=== PATIENT | female | born 1970 | race Two or more races ===

== ENCOUNTER 2016-08-28 19:18 | Emergency (ER) | payer OTHER ==
[~2016-08-28] VITALS: Ht 167.6 cm; Wt 99.3 kg
[~2016-08-28 19:18] MED LIST: AMLODIPINE BESYL5 MG ORAL; HYDROCHLOROTHIA25 MG ORAL; HYDROCODON-ACE1 EA15 ORAL; KEFLEX500 MG ORAL; LISINOPRIL40 MG ORAL; METFORMIN HCL1000 M1 ORAL; METOPROLOL SUCC50 MG ORAL; NIFEDIPINE ER30 MG ORAL
[2016-08-28 19:32] VITALS: BP 161/95
--- NOTE | 2016-08-28 19:39 | Emergency Room Report ---
History of Present Illness General Chief Complaint: Back Pain-No Injury Source: Patient Present Illness HPI Is a 46-year-old female with a history of back pain and also diabetes. She complaining of nontraumatic left-sided back pain for the last 2 weeks. Worse with movement. Worse with bending over. No fever or chills. No nausea vomiting. No urinary complaint. No incontinence of bowel or urine. Pain is 7/ 10. Has not take any medication for it. Allergies: Coded Allergies: No Known Allergies (Unverified , 08/12/14) Patient History Past Medical History: see triage record, old chart reviewed, DM Past Surgical History: other Pertinent Family History: none Social History: Denies: smoking Last Menstrual Period: July Now: No Immunizations: other Reviewed Nursing Documentation: PMH: Agreed, PSxH: Agreed Nursing Documentation-PMH Hx Hypertension: Yes Hx Diabetes: Yes Review of Systems Eye: Denies: blurred vision, eye pain ENT: Denies: ear pain, nose congestion, throat swelling Respiratory: Denies: cough, shortness of breath Cardiovascular: Denies: chest pain, palpitations Gastrointestinal: Denies: abdominal pain, diarrhea, nausea, vomiting Musculoskeletal: Reports: back pain, Denies: joint pain Skin: Denies: rash Neurological: Denies: headache, numbness Endocrine: Denies: increased thirst, increased urine Hematologic/Lymphatic: Denies: easy bruising All Other Systems: negative except mentioned in HPI Physical Exam Vital Signs Date Time Temp Pulse Resp B/P Pulse Ox O2 Delivery O2 Flow Rate FiO2 08/28/16 19:22 97.9 94 16 161/95 97 Room Air vitals with hypertension Sp02 EP Interpretation: reviewed, normal General Appearance: well appearing, no apparent distress, alert Head: normocephalic, atraumatic Eyes: bilateral eye EOMI, bilateral eye PERRL ENT: hearing grossly normal, normal pharynx Neck: full range of motion, supple, no meningismus Respiratory: chest non-tender, lungs clear, normal breath sounds Cardiovascular #1: regular rate, rhythm, no murmur Gastrointestinal: normal bowel sounds, non tender, no mass, no organomegaly, no bruit, non-distended Musculoskeletal: back normal, gait/station normal, normal range of motion, other - Tenderness over the paraspinous muscle of the left lower lumbar area. No midline tenderness. No percussive tenderness. Full range of motion. Psychiatric: mood/affect normal Skin: warm/dry Medical Decision Making Diagnostic Impression: Primary Impression: Back pain Qualified Codes: M54.5 - Low back pain Additional Impressions: UTI (lower urinary tract infection) Hypertension Qualified Codes: I10 - Essential (primary) hypertension Proteinuria Qualified Codes: R80.9 - Proteinuria, unspecified ER Course Patient presents with back pain. Most likely muscle skeletal in nature. She may have urinary tract infection. She grew out Escherichia coli in the past. Will discharge on antibiotics also. No evidence of pyelonephritis, cauda equina syndrome, spinal after abscess or ectopic. Last Vital Signs Date Time Temp Pulse Resp B/P Pulse Ox O2 Delivery O2 Flow Rate FiO2 08/28/16 19:22 97.9 94 16 161/95 97 Room Air Status: improved Disposition: HOME, SELF-CARE Condition: Stable Scripts Levofloxacin* (LEVAQUIN*) 500 Mg Tablet 500 MG ORAL DAILY, #7 TAB Prov: PERLA HILLMAN M.D. 08/28/16 Ibuprofen* (MOTRIN*) 600 Mg Tablet 600 MG ORAL THREE TIMES A DAY, #30 TAB 0 Refills Prov: PERLA HILLMAN M.D. 08/28/16 Patient Instructions: Back Pain, Adult Additional Instructions: Followup with your Dr. in 7 days. Return if symptom worsen. Take your blood pressure medication. PERLA HILLMAN M.D. Aug 28, 2016 19:39
[2016-08-28 20:05] LABS: APPEARANCE,URINE SLIGHTLY CLOUDY; KETONES,URINE 1+ (NEGATIVE); LEUKOCYTE ESTERASE ,URINE 1+ (NEGATIVE); NITRITE,URINE NEGATIVE (NEGATIVE); PROTEIN,URINE 1+ (NEGATIVE); UROBILINOGEN,URINE NORMAL MG/DL (0.0-1.0)
[2016-08-28 20:12] LABS: BACTERIA,URINE FEW /HPF; SQUAMOUS EPITHELIAL CELL,UR MANY /LPF (NONE/OCC)
[2016-08-28] MEDS ORDERED: LEVAQUIN500 MG ORAL (20:37)
[2016-08-28] MEDS ORDERED: IBUPROFEN600 MG ORAL (20:37)
[2016-08-28 20:48] VITALS: BP 161/95
== END 2016-08-28 20:48 | disposition home or self-care (01) ==
LOC: EMR 20:04
DX: M54.5 Low back pain (principal); N39.0 Urinary tract infection, site not specified; I10 Essential (primary) hypertension; R80.9 Proteinuria, unspecified; E11.9 Type 2 diabetes mellitus without complications
CPT/HCPCS: 81003; 81025; 99284

== ENCOUNTER 2017-01-08 20:58 | Emergency (ER) | payer OTHER ==
[~2017-01-08] VITALS: Ht 162.6 cm; Wt 97.1 kg
[~2017-01-08 20:58] MED LIST changes: +IBUPROFEN600 MG ORAL; +LEVAQUIN500 MG ORAL
[2017-01-08] MEDS ORDERED: METFORMIN HCL500 M1 ORAL (21:09)
[2017-01-08] MEDS ORDERED: LANTUS SOL100 UNIT/1 SUBQ (21:09)
[2017-01-08 21:10] VITALS: BP 165/95
--- NOTE | 2017-01-08 21:18 | Emergency Room Report ---
History of Present Illness General Chief Complaint: Female Urogenital Problems Source: Patient Present Illness HPI Is a 46-year-old female with poorly controlled diabetes, with hemoglobin A1c of 11. Patient presents with right flank/lower back pain for the last 2 weeks. Some mild burning with urination. Also with a whitish discharge. No fever chills been no nausea no vomiting. Was concerned about her kidneys since she has diabetes. She is sexually active with one partner. Allergies: Coded Allergies: No Known Allergies (Unverified , 08/12/14) Patient History Past Medical History: see triage record, old chart reviewed, DM Past Surgical History: other Pertinent Family History: none Social History: Denies: smoking Last Menstrual Period: dec 17 Now: No Immunizations: other Reviewed Nursing Documentation: PMH: Agreed, PSxH: Agreed Nursing Documentation-PMH Past Medical History: No History, Except For Hx Hypertension: Yes Hx Diabetes: Yes Review of Systems Eye: Denies: eye pain, blurred vision ENT: Denies: ear pain, nose congestion, throat swelling Respiratory: Denies: cough, shortness of breath Cardiovascular: Denies: chest pain, palpitations Gastrointestinal: Denies: abdominal pain, diarrhea, nausea, vomiting Genitourinary: Reports: discharge Musculoskeletal: Denies: back pain, joint pain Skin: Denies: rash Neurological: Denies: headache, numbness Endocrine: Denies: increased thirst, increased urine Hematologic/Lymphatic: Denies: easy bruising All Other Systems: negative except mentioned in HPI Physical Exam Vital Signs Date Time Temp Pulse Resp B/P (MAP) Pulse Ox O2 Delivery O2 Flow Rate FiO2 01/08/17 21:02 98.1 87 16 165/95 99 vitals with high blood pressure Sp02 EP Interpretation: reviewed, normal General Appearance: well appearing, no apparent distress, alert Head: normocephalic, atraumatic Eyes: bilateral eye PERRL, bilateral eye EOMI ENT: hearing grossly normal, normal pharynx Neck: full range of motion, supple, no meningismus Respiratory: chest non-tender, lungs clear, normal breath sounds Cardiovascular #1: regular rate, rhythm, no murmur Gastrointestinal: normal bowel sounds, non tender, no mass, no organomegaly, no bruit, non-distended Genitourinary: other - Pelvic exam done with Dulce, female RN manager multicultural. Patient is extremely anxious and really can't relax for a complete speculum exam. She has extensive please to the inferior aspect of the vagina posteriorly. For what I can see part of the internal vaginal area, there is also whitish thick discharge consistent with yeast. 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 She has Monica vaginitis. We'll discharge home with Diflucan. We'll give her her labs to take to her doctor. She has referral to see an habitat biologist. Lab Results Impression labs with high sugar Last Vital Signs Date Time Temp Pulse Resp B/P (MAP) Pulse Ox O2 Delivery O2 Flow Rate FiO2 01/08/17 21:02 98.1 87 16 165/95 99 Status: improved Disposition: HOME, SELF-CARE Condition: Stable Scripts Fluconazole (FLUCONAZOLE) 100 Mg Tablet 100 MG ORAL DAILY, #7 TAB 0 Refills Prov: PERLA HILLMAN M.D. 01/08/17 Patient Instructions: Vaginal Yeast Infection, Adult Additional Instructions: Followup your DrWillis within a week. Your diabetes is completely out of control. He will need a referral to see a specialist. Return if symptom worsen. PERLA HILLMAN M.D. Jan 08, 2017 21:18
[2017-01-08 21:45] LABS: APPEARANCE,URINE CLEAR; KETONES,URINE 2+ (NEGATIVE); LEUKOCYTE ESTERASE ,URINE NEGATIVE (NEGATIVE); NITRITE,URINE NEGATIVE (NEGATIVE); PH,URINE 6 (4.5-8.0); PROTEIN,URINE NEGATIVE (NEGATIVE); UROBILINOGEN,URINE NORMAL MG/DL (0.0-1.0)
[2017-01-08 21:54] LABS: BASOPHILS % (AUTO) 0.8 % (0.0-2.0); EOSINOPHILS % (AUTO) 0.6 % (0.0-3.0); LYMPHOCYTES % (AUTO) 28.4 % (20.0-45.0); MEAN CORPUSCULAR HEMOGLOBIN 29.3 PG (27.0-31.0); MEAN CORPUSCULAR VOLUME 89 FL (80-99); MEAN PLATELET VOLUME 6.5 FL (6.5-10.1); MONOCYTES % (AUTO) 5.6 % (1.0-10.0); NEUTROPHILS % (AUTO) 64.6 % (45.0-75.0); PLATELET COUNT 441 K/UL (150-450); RED BLOOD COUNT 5.29 M/UL (4.20-5.40); RED CELL DISTRIBUTION WIDTH 11.4 % (11.6-14.8); WHITE BLOOD COUNT 12.5 K/UL (4.8-10.8)
[2017-01-08 22:11] LABS: ANION GAP 9 mmol/L (5-15); CALCIUM 9.5 MG/DL (8.5-10.1); CARBON DIOXIDE 26 MMOL/L (21-32); CHLORIDE 99 MMOL/L (98-107); GLOMERULAR FILTRATION RATE > 60 mL/min (>60); POTASSIUM 3.9 MMOL/L (3.5-5.1); SODIUM 134 MMOL/L (136-145)
[2017-01-08] MEDS ORDERED: FLUCONAZOLE100 MG ORAL (22:43)
[2017-01-08 22:54] VITALS: BP 154/88
== END 2017-01-08 22:54 | disposition home or self-care (01) ==
LOC: EMR 21:34
DX: E11.65 Type 2 diabetes mellitus with hyperglycemia (principal); M54.9 Dorsalgia, unspecified; B37.3 Candidiasis of vulva and vagina; I10 Essential (primary) hypertension; Z79.4 Long term (current) use of insulin
CPT/HCPCS: 36415; 80048; 81003; 81025; 85025; 87210; 96372; 99283; J1815

== ENCOUNTER 2017-02-15 18:39 | Emergency (ER) | payer SELFPAY ==
[~2017-02-15] VITALS: Ht 167.6 cm; Wt 97.1 kg
[~2017-02-15 18:39] MED LIST changes: +FLUCONAZOLE100 MG ORAL; +LANTUS SOL100 UNIT/1 SUBQ; +METFORMIN HCL500 M1 ORAL
[2017-02-15] MEDS ORDERED: ALBUTEROL SULF8.5 GM INH (19:01)
[2017-02-15] MEDS ORDERED: PREDNISONE20 MG ORAL (19:01)
[2017-02-15] MEDS ORDERED: PROMETHAZINE-C118 M1 ORAL (19:01)
[2017-02-15 19:13] VITALS: BP 156/88
--- NOTE | 2017-02-16 13:15 | Emergency Room Report ---
History of Present Illness General Chief Complaint: Flu Like Symptoms Source: Patient Present Illness HPI 46-year-old female presents to ED for evaluation. States she's been having bodyaches, cough times one week. Cough is productive of yellowish phlegm. The bodyaches, 8/10, throbbing, nonradiating. Denies fevers or chills. Denies sick contacts recent. Denies smoking or drug use. No other aggravating relieving factors. Denies any other associated symptoms Allergies: Coded Allergies: No Known Allergies (Unverified , 08/12/14) Patient History Past Medical History: DM, HTN Past Surgical History: none Pertinent Family History: none Social History: Denies: smoking, alcohol use, drug use Now: No Immunizations: UTD Reviewed Nursing Documentation: PMH: Agreed, PSxH: Agreed Nursing Documentation-PMH Hx Hypertension: Yes Hx Diabetes: Yes Review of Systems All Other Systems: negative except mentioned in HPI Physical Exam Vital Signs Date Time Temp Pulse Resp B/P (MAP) Pulse Ox O2 Delivery O2 Flow Rate FiO2 02/15/17 18:44 98.4 95 20 161/82 99 Room Air 02/15/17 19:00 98 Sp02 EP Interpretation: reviewed, normal General Appearance: no apparent distress, alert, GCS 15, non-toxic Head: normocephalic, atraumatic Eyes: bilateral eye normal inspection, bilateral eye PERRL ENT: hearing grossly normal, normal pharynx, no angioedema, normal voice Neck: full range of motion, supple/symm/no masses Respiratory: chest non-tender, lungs clear, normal breath sounds, speaking full sentences Cardiovascular #1: regular rate, rhythm, no edema Cardiovascular #2: 2+ carotid (R), 2+ carotid (L), 2+ radial (R), 2+ radial (L) , 2+ dorsalis pedis (R), 2+ dorsalis pedis (L) Gastrointestinal: normal bowel sounds, non tender, soft, non-distended, no guarding, no rebound Rectal: deferred Genitourinary: normal inspection, no CVA tenderness Musculoskeletal: back normal, gait/station normal, normal range of motion, non- tender Neurologic: alert, oriented x3, responsive, motor strength/tone normal, sensory intact, speech normal Psychiatric: judgement/insight normal, memory normal, mood/affect normal, no suicidal/homicidal ideation Reflexes: 3+ bicep (R), 3+ bicep (L), 3+ tricep (R), 3+ tricep (L), 3+ knee (R) , 3+ knee (L) Skin: normal color, no rash, warm/dry, well hydrated Lymphatic: no adenopathy Medical Decision Making Diagnostic Impression: Primary Impression: Bronchitis ER Course Hospital Course 46-year-old female presents to ED complaining of cough, bodyaches x 1 week Differential diagnoses include: URI, pharyngitis, otitis media, asthma Clinical course Patient placed on stretcher. After initial history, physical exam reveals a female in no acute distress. Bilateral TM unremarkable. No pharyngeal erythema. No tonsillar exudates. No lymphadenopathy. lungs clear. abdomen soft. Clinical findings consistent with bronchitis. Reassurance given. treatment is supportive therapy Diagnosis - bronchitis Stable and discharged home with Rx Albuterol, prednisone, promethazine/codeine. Instructed to followup with PMD. Return to ED if symptoms recur or worsen Last Vital Signs Date Time Temp Pulse Resp B/P (MAP) Pulse Ox O2 Delivery O2 Flow Rate FiO2 02/15/17 19:13 98.3 76 18 156/88 100 Room Air 98 Status: improved Disposition: HOME, SELF-CARE Condition: Stable Scripts Prednisone* (PREDNISONE*) 20 Mg Tablet 40 MG ORAL DAILY, #10 TAB Prov: NEPTALI HERNANDES M.D. 02/15/17 Albuterol Sulfate* (ALBUTEROL SULFATE MDI*) 8.5 Gm Hfa.aer.ad 2 PUFF INH Q6H, #1 EA 0 Refills Prov: NEPTALI HERNANDES M.D. 02/15/17 Codeine/Promethazine Hcl* (PROMETHAZINE-CODEINE SYRUP*) 118 Ml Syrup 5 ML ORAL Q6H Y for For Cough, #118 ML 0 Refills Prov: NEPTALI HERNANDES M.D. 02/15/17 Referrals: [employer] [facility],REFERRIN (PCP) Patient Instructions: Acute Bronchitis, [id number] NEPTALI HERNANDES M.D. Feb 16, 2017 13:15
== END 2017-02-15 19:13 | disposition home or self-care (01) ==
LOC: EMR 19:10
DX: J40 Bronchitis, not specified as acute or chronic (principal); E11.9 Type 2 diabetes mellitus without complications; I10 Essential (primary) hypertension
CPT/HCPCS: 99283

== ENCOUNTER 2017-04-30 21:01 | Emergency (ER) | payer OTHER ==
[~2017-04-30] VITALS: Ht 167.6 cm; Wt 99.8 kg
[~2017-04-30 21:01] MED LIST changes: +ALBUTEROL SULF8.5 GM INH; +PREDNISONE20 MG ORAL; +PROMETHAZINE-C118 M1 ORAL
[2017-04-30 21:22] VITALS: BP 143/72
[2017-04-30 21:25] LABS: APPEARANCE,URINE CLEAR; BILIRUBIN, URINE NEGATIVE (NEGATIVE); COLOR,URINE PALE YELLOW; GLUCOSE, URINE (UA) 4+ (NEGATIVE); KETONES,URINE 1+ (NEGATIVE); LEUKOCYTE ESTERASE ,URINE NEGATIVE (NEGATIVE); NITRITE,URINE NEGATIVE (NEGATIVE); PH,URINE 6 (4.5-8.0); PROTEIN,URINE NEGATIVE (NEGATIVE); UROBILINOGEN,URINE NORMAL MG/DL (0.0-1.0)
[2017-04-30] MEDS ORDERED: ROBAXIN-750750 MG PO (21:37)
[2017-04-30] MEDS ORDERED: IBUPROFEN600 MG ORAL (21:37)
--- NOTE | 2017-04-30 21:41 | Emergency Room Report ---
History of Present Illness General Chief Complaint: Back Pain-No Injury Source: Patient Present Illness HPI 46-year-old female with pmhx of diabetes p/w right lower back pain for one month. Pain is localized to right lower back, sharp in nature, nonradiating, intermittent. Movement worsens pain. There are no alleviating factors. Patient took pain medications with minimal relief. also endorsing dysuria. Patient has experienced this similar pain in the past. Denies trauma. Denies lower extremity weakness/numbness, no bowel/bladder retention or incontinence, saddle anesthesia. Denies fever, chills, abdominal pain, n/v, dysuria/hematuria. No history of IVDA Allergies: Coded Allergies: No Known Allergies (Unverified , 08/12/14) Patient History Past Medical History: see triage record Past Surgical History: none Pertinent Family History: none Last Menstrual Period: 04/16/17 Now: No Reviewed Nursing Documentation: PMH: Agreed; PSxH: Agreed Nursing Documentation-PMH Past Medical History: No History, Except For Hx Hypertension: Yes Hx Diabetes: Yes Review of Systems All Other Systems: negative except mentioned in HPI Physical Exam Vital Signs Date Time Temp Pulse Resp B/P (MAP) Pulse Ox O2 Delivery O2 Flow Rate FiO2 04/30/17 21:07 98.0 101 16 143/72 99 Room Air 98.1 Sp02 EP Interpretation: reviewed, normal General Appearance: normal inspection, well appearing, no apparent distress, alert, GCS 15, non-toxic Head: normocephalic, atraumatic Eyes: bilateral eye normal inspection, bilateral eye PERRL, bilateral eye EOMI ENT: normal ENT inspection, normal pharynx, normal voice, moist mucus membranes Neck: normal inspection, full range of motion, supple Respiratory: normal inspection, lungs clear, normal breath sounds, no respiratory distress, no retraction, no wheezing, speaking full sentences, chest symmetrical Cardiovascular #1: normal inspection, regular rate, rhythm, no edema, normal capillary refill Cardiovascular #2: 2+ radial (R), 2+ radial (L) Gastrointestinal: normal inspection, non tender, soft, non-distended, no guarding Genitourinary: no CVA tenderness Musculoskeletal: other - RL lumbar paraspinal tenderness no midline tenderness. FROM Neurologic: normal inspection, alert, oriented x3, responsive, motor strength/ tone normal, sensory intact, normal gait, speech normal Psychiatric: normal inspection, judgement/insight normal, memory normal Skin: normal inspection, normal color, no rash, warm/dry, well hydrated, normal turgor Medical Decision Making Diagnostic Impression: Primary Impression: Chronic back pain ER Course 46-year-old female p/w back pain DDX: Likely musculoskeletal back pain vs. muscular strain vs. sciatica Also with dysuria, rule out UTI/pyelonephritis, although suspicion is higher for musculoskeletal pain Lumbar fracture is unlikely given patients age, no midline tenderness, no history of trauma, and that patient is ambulatory. Therefore, at this time no imaging is indicated Serious diagnoses such as cord compression, epidural abscess is unlikely in this patient given the clinical scenario and abscess of neurological symptoms or findings. Patient appears nontoxic. Plan: UA ER course: Patient has remained nontoxic appearing and ambulatory in the ED. UA is negative Disposition: Patient will be discharged to home with prescription of motrin and robaxin. Patient cautioned of the effects of robaxin including possible impairment of physical or mental abilities. Patient was instructed to refrain from operating machinery or driving. Patient is also cautioned on the GI effects of motrin and to take sparingly. Patient verbalized understanding. Strict precautions discussed with patient on when to emergently return to the ED which includes severe/worsening back pain, leg weakness/numbness, urinary retention/incontinence, fever or chills, which may indicate severe illness. Patient is to follow up with their PMD within 5 days. Patient agrees with plan. Please note that this Emergency Department Report was dictated using [employer]en[employer] telecommunications engineer technology software, occasionally this can lead to erroneous entry secondary to interpretation by the dictation equipment. Last Vital Signs Date Time Temp Pulse Resp B/P (MAP) Pulse Ox O2 Delivery O2 Flow Rate FiO2 04/30/17 21:22 98.1 101 16 143/72 99 Room Air 98.1 Condition: Improved Scripts Ibuprofen* (MOTRIN*) 600 Mg Tablet 600 MG ORAL Q8H PRN for For Pain, #30 TAB 0 Refills Prov: Retino,Clairose M.D. 04/30/17 Methocarbamol* (ROBAXIN-750*) 750 Mg Tablet 750 MG PO QID, #28 TAB 0 Refills Prov: Retino,Clairose M.D. 04/30/17 Patient Instructions: Back Pain, Adult Retino,Clairose M.DWillis Apr 30, 2017 21:41
[2017-04-30] MEDS ORDERED: Methocarbamol 750mg tab ORAL ONE (22:00)
[2017-04-30 22:06] VITALS: BP 143/72
== END 2017-04-30 22:06 | disposition home or self-care (01) ==
LOC: EMR 21:26
DX: G89.29 Other chronic pain (principal); M54.5 Low back pain; I10 Essential (primary) hypertension; E11.9 Type 2 diabetes mellitus without complications
CPT/HCPCS: 81003; 81025; 99284

== ENCOUNTER 2018-12-11 19:26 | Emergency (ER) | payer OTHER ==
[~2018-12-11] VITALS: Ht 162.6 cm; Wt 98.9 kg
[~2018-12-11 19:26] MED LIST changes: +AMOXICILLIN500 MG ORAL; +ROBAXIN-750750 MG PO
[2018-12-11 19:37] VITALS: BP 173/88
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
[2018-12-11] MEDS ORDERED: Tetracaine 0.5% Opth 4ml Soln RIGHT EYE ONE (20:15)
[2018-12-11] MEDS ORDERED: Fluorescein Strips RIGHT EYE ONE (20:15)
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
[2018-12-11] MEDS ORDERED: OCUFLOX5 ML OP (20:56)
[2018-12-11] MEDS ORDERED: TYLENOL EXTRA500 MG ORAL (20:56)
[2018-12-11] MEDS ORDERED: DICLOFENAC SODIU5 ML OP (20:56)
[2018-12-11 21:00] VITALS: BP 173/88
--- NOTE | 2018-12-11 21:00 | NUR ---
ED Nurse Note: Pt cleared by ERMD for discharge. DC instructions/prescription was given and explained to pt and verbalized understanding of teachings. All medical deviecs such as ID band removed. Pt is AAO x4, ambulatory and left with all personal belongings. Accompanied by family member.
== END 2018-12-11 21:00 | disposition home or self-care (01) ==
LOC: EMR 20:50
DX: S05.01XA Injury of conjunctiva and corneal abrasion without foreign body, right eye, initial encounter (principal); H11.31 Conjunctival hemorrhage, right eye; Y04.2XXA Assault by strike against or bumped into by another person, initial encounter; Y92.9 Unspecified place or not applicable; E11.9 Type 2 diabetes mellitus without complications; I10 Essential (primary) hypertension
CPT/HCPCS: 99283